=== PATIENT | male | born 1975 | race Caucasian/White ===

== ENCOUNTER 2017-02-21 21:11 | Emergency (ER) | payer MEDICAID ==
[2017-02-21 21:11] VITALS: BMI 20.7
[2017-02-21 21:52] VITALS: BP 131/85; PULSE 59; RESP 20; TEMP 97.7; O2SAT 97
[2017-02-21] MEDS ORDERED: Fluorescein 1 mg Ophthalmic Strip OS ONE (21:57)
[2017-02-21] MEDS ORDERED: Tetracaine 0.5% Ophth 2 ML BOTTLE OU ONE (21:57)
--- NOTE | 2017-02-21 22:01 | C.PDOC ---
History Of Present Illness 41 y.o male complains of left eye pain for 1 month. Patient states he had piece of wood in eye and was seen in ER in December. He used eye drops and was unable to follow up with optho. He continues to have pain to eye, not daily but often. He denies any visual changes, itching, dryness, discharge, new injury. Time Seen by Provider: 02/21/17 21:49 Chief Complaint (Nursing): Eye Problem History Per: Patient History/Exam Limitations: no limitations Onset/Duration Of Symptoms: Other (1 month) Current Symptoms Are (Timing): Still Present Injury To Eye?: No Quality: "Pain" Associated Symptoms: Pain. denies: Decreased Vision, Swelling, FB Sensation, Itching, Discharge From Eye Past Medical History Reviewed: Historical Data, Nursing Documentation, Vital Signs Vital Signs: Last Vital Signs Temp 97.7 F 02/21/17 21:49 Pulse 59 L 02/21/17 21:49 Resp 20 02/21/17 21:49 BP 131/85 02/21/17 21:49 Pulse Ox 97 02/21/17 22:18 - Medical History PMH: No Chronic Diseases Family History: States: Unknown Family Hx - Social History Hx Tobacco Use: No Hx Alcohol Use: No Hx Substance Use: No - Immunization History Hx Tetanus Toxoid Vaccination: No Hx Influenza Vaccination: No Hx Pneumococcal Vaccination: No Review Of Systems Constitutional: Negative for: Fever, Weakness Eyes: Positive for: Pain. Negative for: Vision Change, Conjunctivae Inflammation, Redness ENT: Negative for: Ear Pain, Nose Pain, Throat Pain Cardiovascular: Negative for: Chest Pain Respiratory: Negative for: Cough Skin: Negative for: Rash Neurological: Negative for: Headache, Dizziness Physical Exam - Physical Exam Appears: Non-toxic, No Acute Distress Skin: Warm, Dry, No Diaphoretic, No Pale, No Rash Head: Atraumatic, Normacephalic Eye(s): bilateral: Normal Inspection, PERRL, EOMI, Other (no discharge, no fluoroscein uptake) Nose: Normal Neck: Normal ROM, Supple Extremity: Normal ROM, No Deformity, No Swelling Neurological/Psych: Oriented x3, Normal Speech ED Course And Treatment O2 Sat by Pulse Oximetry: 97 Medical Decision Making Medical Decision Making: Prior records show patient was seen in ED 12/22/16 for eye foreign body and corneal abrasion, Rx for polytrim given. Exam was unremarkable, no fluoroscein uptake on exam. Will prescribe antibiotic drops and to follow up with optho Disposition Counseled Patient/Family Regarding: Need For Followup, Rx Given - Disposition Referrals: Olayinka Wang MD [Staff Provider] - Disposition: HOME/ ROUTINE Disposition Time: 22:14 Condition: STABLE Additional Instructions: Follow up with referral physician in 1-2 days without fail for further evaluation. Take medications as prescribed. Return to the emergency department at any time if symptoms persist or worsen. Prescriptions: Ofloxacin Ophth 0.3% [Ocuflox Ophth 0.3%] 5 ml OS QID #1 bottle Instructions: Eye Pain (ED) - POA Present On Arrival: None - Clinical Impression Clinical Impression: Pain in eye
[2017-02-21] MEDS ORDERED: Tetracaine 0.5% Ophth (OR ONLY) ONE (22:08)
[2017-02-21] MEDS ORDERED: Fluorescein 1 mg Ophthalmic Strip ONE (22:08)
== END 2017-02-21 22:41 | disposition home or self-care (01) ==
LOC: C.ER 21:11
DX: H57.12 Ocular pain, left eye (principal)

== ENCOUNTER 2017-03-04 03:14 | Emergency (ER) | payer MEDICAID ==
[2017-03-04 03:14] VITALS: BMI 20.7
[2017-03-04 03:28] VITALS: RESP 16; O2SAT 99
--- NOTE | 2017-03-04 03:34 | C.PDOC ---
History Of Present Illness Patient is a 41 year old male who presents to the ER with a complaint of lower back pain. Patient denies recent injury, dysuria or hematuria. Chief Complaint (Nursing): Back Pain History Per: Patient History/Exam Limitations: no limitations Onset/Duration Of Symptoms: Hrs Current Symptoms Are (Timing): Still Present Previous Symptoms: None Associated Symptoms: None Recent travel outside of the [place]: No Past Medical History Reviewed: Historical Data, Nursing Documentation, Vital Signs Vital Signs: Last Vital Signs Temp 97.6 F 03/04/17 03:27 Pulse 73 03/04/17 03:27 Resp 16 03/04/17 03:27 BP 138/89 03/04/17 03:27 Pulse Ox 99 03/04/17 03:39 - Medical History PMH: No Chronic Diseases Surgical History: No Surg Hx Family History: States: Unknown Family Hx - Social History Hx Tobacco Use: No Hx Alcohol Use: No Hx Substance Use: No - Immunization History Hx Tetanus Toxoid Vaccination: No Hx Influenza Vaccination: No Hx Pneumococcal Vaccination: No Review Of Systems Genitourinary: Negative for: Dysuria, Hematuria Musculoskeletal: Positive for: Back Pain (Lower) Physical Exam - Physical Exam Appears: Well, Non-toxic Skin: Normal Color, Warm, Dry Head: Atraumatic, Normacephalic Eye(s): bilateral: Normal Inspection, EOMI Oral Mucosa: Moist Chest: Symmetrical, No Tenderness Cardiovascular: Rhythm Regular, No Murmur Respiratory: Normal Breath Sounds, No Rales, No Rhonchi, No Wheezing Gastrointestinal/Abdominal: Soft, No Tenderness Back: No Vertebral Tenderness, Paraspinal Tenderness (Mild sacral), Straight Leg Raising (Pain provoked by raising of lower extremities) Neurological/Psych: Oriented x3, Normal Speech, Normal Cognition ED Course And Treatment O2 Sat by Pulse Oximetry: 99 (room air) Pulse Ox Interpretation: Normal Progress Note: LS spine x-ray and urinalysis ordered. Flexeril and toradol administered. Disposition Counseled Patient/Family Regarding: Diagnosis - Disposition Referrals: [facility] [Outside] Disposition: HOME/ ROUTINE Disposition Time: 04:42 Condition: STABLE Prescriptions: Cyclobenzaprine [Cyclobenzaprine HCl] 10 mg PO TID #20 tab Naproxen [Naprosyn Tab] 375 mg PO TIDPC #20 tab Instructions: Back Exercises (ED), Back Pain (ED) - POA Present On Arrival: None - Clinical Impression Clinical Impression: Low back pain, Low back strain - Scribe Statement The provider has reviewed the documentation as recorded by the Scribkim Kaur All medical record entries made by the Netoibe were at my direction and personally dictated by me. I have reviewed the chart and agree that the record accurately reflects my personal performance of the history, physical exam, medical decision making, and the department course for this patient. I have also personally directed, reviewed, and agree with the discharge instructions and disposition.
[2017-03-04 04:15] LABS: URINE BILIRUBIN NEGATIVE (NEGATIVE); URINE BLOOD NEGATIVE (NEGATIVE); URINE COLOR COLORLESS (YELLOW); URINE GLUCOSE (UA) NEGATIVE (Normal); URINE KETONE NEGATIVE (NEGATIVE); URINE PROTEIN NEGATIVE (NEGATIVE)
[2017-03-04 04:16] LABS: URINE LEUKOCYTE ESTERASE NEGATIVE Leu/uL (Negative); URINE UROBILINOGEN Normal mg/dL (0.2-1.0)
[2017-03-04 04:55] VITALS: BP 124/85; PULSE 58; TEMP 97.8
--- NOTE | 2017-03-04 10:21 | RAD ---
PROCEDURE: Radiographs of the Lumbar Spine. HISTORY: lower back pain No antecedent history of trauma provided. COMPARISON: No prior. FINDINGS: BONES: Normal alignment. No listhesis. No fracture. DISC SPACES: Unremarkable. OTHER FINDINGS: Constipation without fecal impaction or obstruction. IMPRESSION: No significant or acute findings to account for/ related to the clinical presentation.
== END 2017-03-04 05:00 | disposition home or self-care (01) ==
LOC: C.ER 03:14
DX: S39.012A Strain of muscle, fascia and tendon of lower back, initial encounter (principal); X58.XXXA Exposure to other specified factors, initial encounter
CPT/HCPCS: 72100; 81001; 96372; 99283; J1885

== ENCOUNTER 2017-04-30 23:09 | Emergency (ER) | payer MEDICAID ==
[2017-04-30 23:10] VITALS: BMI 20.7
[2017-05-01 00:13] VITALS: BP 120/85; PULSE 66; RESP 16; TEMP 98.4; O2SAT 97
--- NOTE | 2017-05-01 00:59 | C.PDOC ---
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 Denies weakness, numbness, incontinence, dysuria, hematuria, or recent trauma. Time Seen by Provider: 05/01/17 00:22 Chief Complaint (Nursing): Back Pain History Per: Patient History/Exam Limitations: no limitations Onset/Duration Of Symptoms: Hrs Current Symptoms Are (Timing): Still Present Quality Of Discomfort: Unable To Describe Severity: Moderate Previous Symptoms: None Associated Symptoms: None. denies: Incontinence, New Weakness, New Numbness Exacerbating Factor(s): Nothing, Movement Recent travel outside of the [place]: No Past Medical History Reviewed: Historical Data, Nursing Documentation, Vital Signs Vital Signs: Last Vital Signs Temp 98.4 F 05/01/17 00:06 Pulse 66 05/01/17 00:06 Resp 16 05/01/17 00:06 BP 120/85 05/01/17 00:06 Pulse Ox 97 05/01/17 02:50 - Medical History PMH: No Chronic Diseases Surgical History: No Surg Hx Family History: States: Unknown Family Hx - Social History Hx Tobacco Use: No Hx Alcohol Use: No Hx Substance Use: No - Immunization History Hx Tetanus Toxoid Vaccination: No Hx Influenza Vaccination: No Hx Pneumococcal Vaccination: No Review Of Systems Genitourinary: Negative for: Dysuria, Incontinence, Hematuria Musculoskeletal: Positive for: Neck Pain, Back Pain Neurological: Negative for: Weakness, Numbness Physical Exam - Physical Exam Appears: Non-toxic Skin: Normal Color, Warm, Dry Head: Atraumatic, Normacephalic Eye(s): bilateral: Normal Inspection, PERRL Oral Mucosa: Moist Neck: Normal, No Midline Cervical Tenderness, No Paracervical Tenderness, Supple Back: Normal Inspection, No CVA Tenderness, No Vertebral Tenderness, No Decreased ROM, No Paraspinal Tenderness, No Straight Leg Raising Extremity: Normal ROM (x4), No Tenderness Neurological/Psych: Oriented x3, Normal Speech, Normal Cognition, Normal Motor, Normal Sensation Gait: Steady ED Course And Treatment O2 Sat by Pulse Oximetry: 97 (Room air) Pulse Ox Interpretation: Normal Progress Note: Flexeril and motrin administered. Patient is resting comfortably , is no longer having back pain, no fever, no bony tenderness, no numbness, no weakness, or abdominal pain. Patient is ambulatory in the emergency department with no signs of discomfort. Patient was advised to follow up with their physician in 1-2 days. Disposition Counseled Patient/Family Regarding: Diagnosis, Need For Followup, Rx Given - Disposition Disposition: HOME/ ROUTINE Disposition Time: 00:58 Condition: STABLE Additional Instructions: Please take medictions as directed Follow up with PMD Return to ER if worse Prescriptions: Cyclobenzaprine [Cyclobenzaprine HCl] 10 mg PO HS #7 tab Ibuprofen [Motrin] 600 mg PO Q6H #30 tab Instructions: Cervical Strain (DC), Acute Low Back Pain (ED) Forms: Work Excuse Print Language: ALGERIAN - Clinical Impression Clinical Impression: Lumbar sprain, Cervical sprain - Scribe Statement The provider has reviewed the documentation as recorded by the Scribkim Kaur All medical record entries made by the Netoibkim were at my direction and personally dictated by me. I have reviewed the chart and agree that the record accurately reflects my personal performance of the history, physical exam, medical decision making, and the department course for this patient. I have also personally directed, reviewed, and agree with the discharge instructions and disposition.
== END 2017-05-01 01:23 | disposition home or self-care (01) ==
LOC: C.ER 23:09
DX: S33.5XXA Sprain of ligaments of lumbar spine, initial encounter (principal); S13.4XXA Sprain of ligaments of cervical spine, initial encounter; X50.0XXA Overexertion from strenuous movement or load, initial encounter; Y92.89 Other specified places as the place of occurrence of the external cause; Y99.0 Civilian activity done for income or pay

== ENCOUNTER 2017-05-28 19:40 | Emergency (ER) | payer MEDICAID ==
[2017-05-28 19:40] VITALS: BMI 20.7
[2017-05-28 20:02] VITALS: BP 174/64; TEMP 98.4
[2017-05-28] MEDS ORDERED: Erythromycin 0.5% Ophth Oint 1 APPLIC/3.5 G OD STA (20:10)
--- NOTE | 2017-05-28 20:10 | C.PDOC ---
History Of Present Illness 42 year old male presents to the ED with complaints of dysuria and increased frequency intermittently for one year that has been worsening over the last few days. Was seen here twice for similar complaints, with a negative work up. Patient denies any sexual intercourse, hematuria, flank pain, or swelling. He also complaints of right eye pain for several months with swelling of the right eyelid today. Patient denies injury or visual changes. Time Seen by Provider: 05/28/17 20:05 Chief Complaint (Nursing): Male Genitourinary History Per: Patient History/Exam Limitations: no limitations Onset/Duration Of Symptoms: Intermittent Episodes, Worse Since (last few days of urinary symptoms; eye swelling today ) Current Symptoms Are (Timing): Still Present Recent travel outside of the [place]: No Past Medical History Reviewed: Historical Data, Nursing Documentation, Vital Signs Vital Signs: Last Vital Signs Temp 98.4 F 05/28/17 19:54 Pulse 75 05/28/17 20:47 Resp 18 05/28/17 20:47 BP 174/64 H 05/28/17 19:54 Pulse Ox 99 05/28/17 20:47 - Medical History PMH: Family History: States: Unknown Family Hx - Social History Hx Tobacco Use: No Hx Alcohol Use: No Hx Substance Use: No - Immunization History Hx Tetanus Toxoid Vaccination: No Hx Influenza Vaccination: No Hx Pneumococcal Vaccination: No Review Of Systems Constitutional: Negative for: Fever, Chills Eyes: Positive for: Pain (right eye pain and swelling) Gastrointestinal: Negative for: Nausea, Vomiting, Abdominal Pain, Diarrhea Genitourinary: Positive for: Dysuria. Negative for: Hematuria, Penile Discharge Musculoskeletal: Negative for: Back Pain Physical Exam - Physical Exam Appears: Non-toxic, No Acute Distress Skin: Warm, Dry Head: Atraumatic, Normacephalic Eye(s): bilateral: PERRL, EOMI, right: Eyelid Inflammation (mild upper eyelid inflammation), Other (no redness or discharge. ), left: Normal Inspection Ear(s): Bilateral: Normal Nose: Normal, No Discharge Oral Mucosa: Moist Neck: Supple Chest: Symmetrical, No Deformity Cardiovascular: Rhythm Regular Respiratory: Normal Breath Sounds, No Rhonchi, No Wheezing Gastrointestinal/Abdominal: Soft, No Tenderness, No Distention, No Guarding, No Rebound Male Genital: Normal Inspection, No Testicular Tenderness, No Testicular Swelling, No Inguinal Tenderness, No Inguinal Swelling, No Scrotal Swelling Neurological/Psych: Oriented x3, Normal Speech Gait: Steady ED Course And Treatment O2 Sat by Pulse Oximetry: 98 (room air ) Progress Note: Patient was given erythromycin ointment for eye. UA ordered and unremarkable. Cultures sent out. Patient advised to follow up with clinic or urology for further eval Disposition Counseled Patient/Family Regarding: Diagnosis, Need For Followup - Disposition Referrals: [facility] [Outside] Dalila Cutler MD [Staff Provider] - Disposition: HOME/ ROUTINE Disposition Time: 20:40 Condition: STABLE Additional Instructions: Follow up with the clinic in 2-5 days for further evaluation. Apply ointment to eye. Apply cream to genital area. Return to the emergency department at any time if symptoms persist or worsen. You may call critical access hospital service for any assistance [phone]. 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 - Scribe Statement The provider has reviewed the documentation as recorded by the Scribe Matilde Arriaga All medical record entries made by the Scribe were at my direction and personally dictated by me. I have reviewed the chart and agree that the record accurately reflects my personal performance of the history, physical exam, medical decision making, and the department course for this patient. I have also personally directed, reviewed, and agree with the discharge instructions and disposition.
[2017-05-28 20:33] LABS: RBC URINE < 1 /hpf (0-3); URINE BILIRUBIN NEGATIVE (NEGATIVE); URINE BLOOD NEGATIVE (NEGATIVE); URINE COLOR Colorless (YELLOW); URINE GLUCOSE (UA) NORMAL (Normal); URINE KETONE NEGATIVE (NEGATIVE); URINE LEUKOCYTE ESTERASE NEG Leu/uL (Negative); URINE PROTEIN NEGATIVE (NEGATIVE); URINE UROBILINOGEN NORMAL mg/dL (0.2-1.0)
[2017-05-28] MEDS ORDERED: Erythromycin 0.5% Ophth Oint 1 APPLIC/3.5 G ONE (20:39)
[2017-05-28 20:47] VITALS: PULSE 75; RESP 18
[2017-05-29 13:09] VITALS: O2SAT 98
== END 2017-05-28 20:48 | disposition home or self-care (01) ==
LOC: C.ER 19:40
DX: R30.0 Dysuria (principal); L73.9 Follicular disorder, unspecified; H01.001 Unspecified blepharitis right upper eyelid

== ENCOUNTER 2017-06-11 11:47 | Emergency (ER) | payer MEDICAID ==
[2017-06-11 11:47] VITALS: BMI 20.7
[2017-06-11 11:50] VITALS: TEMP 97.6
[2017-06-11] MEDS ORDERED: Lidocaine 2% Jelly (Uro-Jet) ONE (12:14)
[2017-06-11] MEDS ORDERED: Lidocaine 2% Jelly (Uro-Jet) TOP ONE (12:14)
--- NOTE | 2017-06-11 12:14 | C.PDOC ---
History Of Present Illness 42 y/o male presents to ED for evaluation of persistent scrotal pain and dysuria for the past year. Pt was seen here on 05/28 for similar symptoms and was discharged home with Bactroban cream which pt states he has used without any improvement. Pt notes that pain is "deep inside" his scrotum, and states he has pain at the base of his penis on urination. Pt has been seen here multiple times in the past for similar complaints, with negative UA and urine culture. Pt states he was supposed to follow up with Dr. Paco Cutler but has not followed up. Otherwise, denies any irritation, rash, penile discharge, pelvic pain, or fever. Denies taking any OTC pain meds. Chief Complaint (Nursing): Male Genitourinary History Per: Patient History/Exam Limitations: no limitations Onset/Duration Of Symptoms: Days Current Symptoms Are (Timing): Still Present Quality Of Discomfort: "Pain" Associated Symptoms: Urinary Symptoms Alleviating Factors: None Recent travel outside of the [place]: No Additional History Per: Patient Past Medical History Reviewed: Historical Data, Nursing Documentation, Vital Signs Vital Signs: Last Vital Signs Temp 97.6 F 06/11/17 11:50 Pulse 59 L 06/11/17 11:50 Resp 20 06/11/17 11:50 BP 133/87 06/11/17 11:50 Pulse Ox 97 06/11/17 12:33 - Medical History PMH: Denies: Chronic Kidney Disease Family History: States: Unknown Family Hx - Social History Hx Tobacco Use: No Hx Alcohol Use: No Hx Substance Use: No - Immunization History Hx Tetanus Toxoid Vaccination: No Hx Influenza Vaccination: No Hx Pneumococcal Vaccination: No Review Of Systems Except As Marked, All Systems Reviewed And Found Negative. Constitutional: Negative for: Fever, Chills Gastrointestinal: Negative for: Nausea, Vomiting, Abdominal Pain Genitourinary: Positive for: Dysuria, Frequency, Scrotal Pain, Penile Pain. Negative for: Hematuria, Penile Discharge, Rash Musculoskeletal: Negative for: Back Pain Physical Exam - Physical Exam Appears: Non-toxic, No Acute Distress Skin: Normal Color, Warm, Dry Gastrointestinal/Abdominal: Soft, No Tenderness Male Genital: Normal Inspection, No Testicular Tenderness, No Testicular Swelling, No Inguinal Tenderness, No Inguinal Swelling, No Scrotal Swelling Neurological/Psych: Oriented x3, Normal Speech, Normal Cognition ED Course And Treatment O2 Sat by Pulse Oximetry: 97 (on RA) Pulse Ox Interpretation: Normal Progress - Re-Evaluation Re-evaluation Note: 06/11/17 12:19 UROJET APPLIED. PT TOLERATED WELL, FEELS BETTER - Data Reviewed Data Reviewed: Old records Disposition Counseled Patient/Family Regarding: Diagnosis, Need For Followup - Disposition Referrals: Paco Cutler MD [Staff Provider] - Disposition: HOME/ ROUTINE Disposition Time: 12:13 Condition: IMPROVED Prescriptions: Naproxen 500 mg PO BID #30 tab Phenazopyridine HCl [Pyridium] 200 mg PO BID #6 tablet Instructions: Dysuria (ED) Forms: [employer] (Danish) - Clinical Impression Clinical Impression: Dysuria, Chronic pain - Scribe Statement The provider has reviewed the documentation as recorded by the Scribkim Noyola All medical record entries made by the Netoibe were at my direction and personally dictated by me. I have reviewed the chart and agree that the record accurately reflects my personal performance of the history, physical exam, medical decision making, and the department course for this patient. I have also personally directed, reviewed, and agree with the discharge instructions and disposition.
[2017-06-11 12:38] VITALS: BP 134/72; PULSE 62; RESP 18; O2SAT 98
== END 2017-06-11 12:39 | disposition home or self-care (01) ==
LOC: C.ER 11:47
DX: R30.0 Dysuria (principal); G89.29 Other chronic pain

== ENCOUNTER 2017-07-30 07:16 | Emergency (ER) | payer MEDICAID ==
[2017-07-30 07:17] VITALS: BMI 20.7
[2017-07-30 07:24] VITALS: BP 145/95; PULSE 65; RESP 18; TEMP 97.7; O2SAT 98
--- NOTE | 2017-07-30 08:04 | C.PDOC ---
History Of Present Illness 42 y/o male presents to ED with complaints of back pain and shoulder pain for 2 days. Patient also complaints of feeling "cold" and admits he does a lot of heavy lifting at work. Patient has not taken any medication for pain and denies bowel/bladder incontinence, fever, chills, nausea, vomiting, diarrhea or any other complaints at this time. Time Seen by Provider: 07/30/17 07:25 Chief Complaint (Nursing): Back Pain History Per: Patient History/Exam Limitations: no limitations Onset/Duration Of Symptoms: Days Current Symptoms Are (Timing): Still Present Quality Of Discomfort: "Pain" Severity: Mild Recent travel outside of the [place]: No Past Medical History Reviewed: Historical Data, Nursing Documentation, Vital Signs Vital Signs: Last Vital Signs Temp 97.7 F 07/30/17 07:21 Pulse 65 07/30/17 07:21 Resp 18 07/30/17 08:33 BP 145/95 H 07/30/17 07:21 Pulse Ox 98 07/30/17 08:33 - Medical History PMH: No Chronic Diseases Surgical History: No Surg Hx Family History: States: No Known Family Hx - Social History Hx Tobacco Use: No Hx Alcohol Use: No Hx Substance Use: No - Immunization History Hx Tetanus Toxoid Vaccination: No Hx Influenza Vaccination: No Hx Pneumococcal Vaccination: No Review Of Systems Constitutional: Negative for: Fever, Chills Gastrointestinal: Negative for: Nausea, Vomiting, Diarrhea Musculoskeletal: Positive for: Shoulder Pain, Back Pain Skin: Negative for: Rash Neurological: Negative for: Weakness, Numbness Physical Exam - Physical Exam Appears: Non-toxic, No Acute Distress Skin: Normal Color, Warm, Dry, No Rash Head: Atraumatic, Normacephalic Eye(s): bilateral: Normal Inspection Oral Mucosa: Moist Neck: Normal ROM, Supple Chest: Symmetrical, Tenderness (right parathoracic area) Respiratory: Normal Breath Sounds Gastrointestinal/Abdominal: Soft, No Tenderness, No Guarding, No Rebound Back: No CVA Tenderness, No Paraspinal Tenderness, Other (Right upper back tenderness) Extremity: Normal ROM, Capillary Refill (<2 seconds) Neurological/Psych: Oriented x3, Normal Motor, Normal Sensation ED Course And Treatment O2 Sat by Pulse Oximetry: 98 (RA) Pulse Ox Interpretation: Normal - Radiology CXR: Interpreted by Me CXR Interpretation: Yes: No Acute Disease Progress Note: Treated with motrin 600 mg PO. On re-evaluation lungs clear. ambulating in ED without difficulty Reassessment Condition: Improved Medical Decision Making Medical Decision Making: Plan: XRAY, Motrin Disposition Counseled Patient/Family Regarding: Studies Performed, Diagnosis, Need For Followup, Rx Given - Disposition Referrals: [facility] [Outside] [facility] [Outside] Disposition: HOME/ ROUTINE Disposition Time: 08:40 Condition: IMPROVED Additional Instructions: Follow up with your PMD or clinic for further evaluation Prescriptions: Naproxen [Naprosyn] 1 tab PO BID PRN #25 tab PRN Reason: Pain Instructions: Back Pain (ED) Forms: [employer] (South African) - POA Present On Arrival: None - Clinical Impression Clinical Impression: Thoracic back pain, Musculoskeletal back pain - 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 - Scribe Statement The provider has reviewed the documentation as recorded by the Ginger Mckeon All medical record entries made by the Ginger were at my direction and personally dictated by me. I have reviewed the chart and agree that the record accurately reflects my personal performance of the history, physical exam, medical decision making, and the department course for this patient. I have also personally directed, reviewed, and agree with the discharge instructions and disposition.
--- NOTE | 2017-07-30 09:53 | RAD ---
HISTORY: Cough r/o CHF COMPARISON: 11/09/2012 TECHNIQUE: Chest PA and lateral FINDINGS: LUNGS: No active pulmonary disease. PLEURA: No significant pleural effusion identified. No pneumothorax apparent. CARDIOVASCULAR: Normal. OSSEOUS STRUCTURES: No significant abnormalities. VISUALIZED UPPER ABDOMEN: Normal. OTHER FINDINGS: None. IMPRESSION: No active disease.
== END 2017-07-30 08:51 | disposition home or self-care (01) ==
LOC: C.ER 07:16
DX: M54.6 Pain in thoracic spine (principal)

== ENCOUNTER 2017-09-06 09:56 | Emergency (ER) | payer SELFPAY ==
[2017-09-06 09:58] VITALS: BMI 20.7
--- NOTE | 2017-09-06 10:20 | C.PDOC ---
History Of Present Illness 42 yr old male presents to the ER with complaints of persistent foreign body sensation to the throat since last night. Patient states he accidentally swallowed a chicken bone/cartilage fragment but was able to swallow liquids this morning. Patient complains of pain to the upper/mid front of throat. Denies mouth pain, chest pain, SOB, vomiting or neck pain. PERSIST THROAT FB SENSATION SINCE LAST NIGHT. PS ACCID SWALLOWED CHICKEN BONE/ CARTILAGE FRAGMENT. ABLE TO SWALLOW LIQUID THIS MORNING. CO PAIN UPPER/MID FRONT OF THROAT. NO OTHER ASSOC SX EXAM NAD NONTOXIC HEENT NO DROOL, VOICE CHANGE NECK SUPPLE NO STRIDOR REMAINDER NEG Time Seen by Provider: 09/06/17 10:07 Chief Complaint (Nursing): Foreign Body History Per: Patient History/Exam Limitations: None Onset/Duration Of Symptoms: Days (Last night) Current Symptoms Are (Timing): Still Present Past Medical History Reviewed: Historical Data, Nursing Documentation, Vital Signs Vital Signs: Last Vital Signs Temp 98.0 F 09/06/17 12:31 Pulse 66 09/06/17 12:31 Resp 18 09/06/17 12:31 BP 128/82 09/06/17 12:31 Pulse Ox 100 09/06/17 12:45 - Medical History PMH: Family History: States: No Known Family Hx - Social History Hx Tobacco Use: No Hx Alcohol Use: No Hx Substance Use: No - Immunization History Hx Tetanus Toxoid Vaccination: No Hx Influenza Vaccination: No Hx Pneumococcal Vaccination: No Review Of Systems Except As Marked, All Systems Reviewed And Found Negative. ENT: Positive for: Other ((+) Foreign body sensation in the throat). Negative for: Mouth Pain Cardiovascular: Negative for: Chest Pain Respiratory: Negative for: Shortness of Breath Gastrointestinal: Negative for: Vomiting Musculoskeletal: Negative for: Neck Pain Physical Exam - Physical Exam Appears: Non-toxic, No Acute Distress Skin: Warm, Dry, No Rash Head: Atraumatic, Normacephalic Oral Mucosa: Moist, No Drooling, No Trismus Throat: Normal, No Erythema, No Exudate, No Drooling, Other (No voice change) Neck: Normal, Normal ROM, Supple Respiratory: Normal Breath Sounds, No Rales, No Rhonchi, No Stridor, No Wheezing Extremity: Normal ROM, No Swelling Neurological/Psych: Oriented x3, Normal Speech, Normal Motor, Normal Sensation Gait: Steady ED Course And Treatment O2 Sat by Pulse Oximetry: 100 (RA) Pulse Ox Interpretation: Normal - Other Rad CT - Soft Tissue Neck X-Ray: Interpreted by Me, Viewed By Me Interpretation: NO FB. Reevaluation Time: 12:44 Reassessment Condition: Improved (CT NEG) Medical Decision Making Medical Decision Making: PLAN: * CT - Neck Soft Tissue Disposition Counseled Patient/Family Regarding: Studies Performed, Diagnosis, Need For Followup - Disposition Referrals: YOUR,PMD [Other] Disposition: HOME/ ROUTINE Disposition Time: 12:44 Condition: IMPROVED Additional Instructions: THERE IS NO FOREIGN BODY IN YOUR THROAT. FOLLOW UP WITH YOUR PMD Forms: [facility] (Cameroonian), General Discharge Instructions - Clinical Impression Clinical Impression: Sensation of foreign body - Scribe Statement The provider has reviewed the documentation as recorded by the Ginger Baptiste Provider Attestation: All medical record entries made by the Netoibe were at my direction and personally dictated by me. I have reviewed the chart and agree that the record accurately reflects my personal performance of the history, physical exam, medical decision making, and the department course for this patient. I have also personally directed, reviewed, and agree with the discharge instructions and disposition.
[2017-09-06 10:45] VITALS: O2SAT 100
[2017-09-06 12:32] VITALS: BP 128/82; PULSE 66; RESP 18; TEMP 98
[2017-09-06] MEDS ORDERED: Aluminum Hydroxide/Magnesium Hydroxide Susp (30 mL) PO STA (12:43)
[2017-09-06] MEDS ORDERED: Aluminum Hydroxide/Magnesium Hydroxide Susp (30 mL) ONE (12:55)
--- NOTE | 2017-09-06 13:05 | CT ---
PROCEDURE: CT scan neck dated 09/06/2017 HISTORY: Foreign body sensation COMPARISON: Comparison made with plain film radiographs of the neck and CT scan neck dated [facility] 08/20/2015 and 07/31/2012 respectively. TECHNIQUE: CT scan neck without intravenous contrast. Coronal and sagittal reformats generated. Radiation dose: DLP 555.43 mGy-cm This CT exam was performed using one or more of the following dose reduction techniques: Automated exposure control, adjustment of the mA and/or kV according to patient size, and/or use of iterative reconstruction technique. FINDINGS: The current study reveals no large cervical masses or collections. Multiple small nonspecific bilateral cervical lymph nodes are present none of which appear pathologically enlarged. Thyroid gland appears unremarkable. The submandibular and parotid glands are also unremarkable without masses collections or calcifications. Cervical vasculature poorly delineated due to the lack of circulating intravenous contrast material. . Airway is widely patent throughout. The visualized portions of the oral cavity so far as can be seen appear unremarkable ; note that the superior margin of the oral cavity partially obscured by streak and beam hardening artifact. The palatine tonsils appear grossly unremarkable. Minimal asymmetry of the vallecula may be secondary to some encroachment of lingual tonsil however some residual and or retained secretion may be present. Free margin of the epiglottis unremarkable. Aryepiglottic folds and pyriform sinuses are relatively symmetric as are the true vocal cords. Minor left apical pleural thickening Lung apices are otherwise clear. No evidence of radiopaque foreign bodies are identified on this study. There is sclerosis of the cervical segments nonspecific ; has there been prior radiotherapy at this patient? . . Mild multilevel degenerative spondylosis of the cervical spine IMPRESSION: No radiopaque foreign bodies are identified. Sclerotic changes of the cervical spine; rule out sequela of radiotherapy.
--- NOTE | 2017-09-06 13:34 | RAD ---
PROCEDURE: Radiographs of the neck (soft tissue). HISTORY: FB SENSATION COMPARISON: Comparison made with concurrent CT scan neck. TECHNIQUE: Frontal and Lateral Radiographs of the neck, optimized for soft tissue visualization. FINDINGS: SOFT TISSUES: No radiopaque foreign bodies are identified. Airway is midline and patent. CERVICAL SPINE: No acute compression fractures no retropulsed fragments. There is straightening of the normal cervical lordosis. Mild multilevel degenerative spondylosis. The cervical vertebral bodies appear sclerotic nonspecific; rule out sequela of radiotherapy OTHER FINDINGS: Lung apices appear clear. . IMPRESSION: No radiopaque foreign bodies. Straightening of the normal cervical lordosis. Mild multilevel degenerative spondylosis. Sclerotic changes of the cervical segments nonspecific; rule out sequela of radiotherapy.
== END 2017-09-06 13:02 | disposition home or self-care (01) ==
LOC: C.ER 09:56
DX: R09.89 Other specified symptoms and signs involving the circulatory and respiratory systems (principal)

== ENCOUNTER 2017-12-05 19:50 | Emergency (ER) | payer MEDICAID ==
[2017-12-05 19:50] VITALS: BMI 20.7
[2017-12-05 20:12] VITALS: BP 124/84; PULSE 65; RESP 20; TEMP 98.1; O2SAT 96
[2017-12-05] MEDS ORDERED: Tetracaine 0.5% Ophth (OR ONLY) OU STA (20:27)
[2017-12-05] MEDS ORDERED: Fluorescein 1 mg Ophthalmic Strip ONE (20:38)
[2017-12-05] MEDS ORDERED: Tetracaine 0.5% Ophth (OR ONLY) ONE (20:38)
[2017-12-05] MEDS ORDERED: Fluorescein 1 mg Ophthalmic Strip OD STA (20:43)
[2017-12-05] MEDS ORDERED: Tobramycin 0.3% OPHT SOLN OD STA (20:44)
--- NOTE | 2017-12-05 20:46 | C.PDOC ---
History Of Present Illness 42yo male, presents to ER for evaluation of a foreign body sensation in his right eye. Patient states earlier today, he was breaking a plastic object, did not have protective eye covering and feels a piece of plastic may have entered his eye. He denies any pain, discharge from his eye or changes in vision. No other complaints. Time Seen by Provider: 12/05/17 20:25 Chief Complaint (Nursing): Eye Problem History Per: Patient History/Exam Limitations: no limitations Onset/Duration Of Symptoms: Hrs Current Symptoms Are (Timing): Still Present Injury To Eye?: No Wears Contact Lens?: No Associated Symptoms: FB Sensation. denies: Pain, Decreased Vision, Discharge From Eye Past Medical History Reviewed: Historical Data, Nursing Documentation, Vital Signs Vital Signs: Last Vital Signs Temp 98.1 F 12/05/17 20:08 Pulse 65 12/05/17 20:08 Resp 20 12/05/17 20:08 BP 124/84 12/05/17 20:08 Pulse Ox 96 12/05/17 21:00 - Medical History PMH: No Chronic Diseases Denies: Chronic Kidney Disease Surgical History: No Surg Hx Family History: States: No Known Family Hx - Social History Hx Tobacco Use: No Hx Alcohol Use: No Hx Substance Use: No - Immunization History Hx Tetanus Toxoid Vaccination: No Hx Influenza Vaccination: No Hx Pneumococcal Vaccination: No Review Of Systems Except As Marked, All Systems Reviewed And Found Negative. Eyes: Positive for: Other (foreign body sensation right eye). Negative for: Pain, Vision Change Physical Exam - Physical Exam Appears: Non-toxic Skin: Normal Color, Warm Head: Normacephalic Eye(s): bilateral: PERRL, EOMI, right: Other (flurosceine uptake negative, no corneal abrasion noted. no foreign body noted upon eyelid inversion) Neurological/Psych: Oriented x3, Normal Speech, Normal Cognition ED Course And Treatment O2 Sat by Pulse Oximetry: 96 (RA) Pulse Ox Interpretation: Normal Progress Note: Fluroscein exam negative. Patient to be given antibiotics eye drops and instruction to follow up with opthalmologist tomorrow. Patient stable for discharge home. Disposition - Disposition Referrals: Ajith Ascencio [Staff Provider] - Disposition: HOME/ ROUTINE Disposition Time: 20:45 Condition: STABLE Additional Instructions: Follow up with PMD and Quality Process Auditor tomorrow 1-2 days. Return to ED if feel worse. Instructions: Foreign Body in Eye Forms: [employer] [facility] (Malay) - Clinical Impression Clinical Impression: Pain in eye - PA / LOG WASHER / Resident 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 - Scribe Statement The provider has reviewed the documentation as recorded by the Scribe (Albania Wilson) Provider Attestation: All medical record entries made by the Scribe were at my direction and personally dictated by me. I have reviewed the chart and agree that the record accurately reflects my personal performance of the history, physical exam, medical decision making, and the department course for this patient. I have also personally directed, reviewed, and agree with the discharge instructions and disposition.
--- NOTE | 2017-12-05 20:47 | C.PDOC ---
Time Seen by Provider: 12/05/17 20:25 Chief Complaint (Nursing): Eye Problem Past Medical History Vital Signs: Last Vital Signs Temp 98.1 F 12/05/17 20:08 Pulse 65 12/05/17 20:08 Resp 20 12/05/17 20:08 BP 124/84 12/05/17 20:08 Pulse Ox 96 12/05/17 20:48 - Medical History PMH: Denies: Chronic Kidney Disease - Social History Hx Tobacco Use: No Hx Alcohol Use: No Hx Substance Use: No - Immunization History Hx Tetanus Toxoid Vaccination: No Hx Influenza Vaccination: No Hx Pneumococcal Vaccination: No ED Course And Treatment O2 Sat by Pulse Oximetry: 96 Disposition - Disposition Referrals: Ajith Ascencio [Staff Provider] - Disposition: HOME/ ROUTINE Additional Instructions: Follow up with PMD and Rn Plastic Surgery tomorrow 1-2 days. Return to ED if feel worse. Instructions: Foreign Body in Eye Forms: [facility] (Turkish) - Clinical Impression Clinical Impression: Pain in eye
== END 2017-12-05 21:10 | disposition home or self-care (01) ==
LOC: C.ER 19:50
DX: H57.11 Ocular pain, right eye (principal)

== ENCOUNTER 2017-12-10 10:58 | Emergency (ER) | payer MEDICAID ==
[2017-12-10 10:58] VITALS: BMI 20.7
[2017-12-10 11:09] VITALS: BP 127/76; PULSE 80; RESP 16; O2SAT 98
--- NOTE | 2017-12-10 13:15 | C.PDOC ---
History Of Present Illness 42-year-old male, presents to the emergency department with complaints of generalized body aches, cough, runny nose and fever since yesterday. Denies recent travel, rashes, nausea/vomiting/diarrhea, back pain, rashes, dizziness, symptoms. No other complaint. HPI: Influenza Time Seen by Provider: 12/10/17 11:24 Chief Complaint: Flu-like Symptoms History Per: Patient Exam Limitations: no limitations Past Medical History Reviewed: Historical Data, Nursing Documentation, Vital Signs Vital Signs: Last Vital Signs Temp 100.3 F H 12/10/17 11:54 Pulse 80 12/10/17 11:07 Resp 16 12/10/17 11:07 BP 127/76 12/10/17 11:07 Pulse Ox 98 12/10/17 11:07 - Medical History PMH: Family History: States: No Known Family Hx - Social History Hx Tobacco Use: No Hx Alcohol Use: No Hx Substance Use: No - Immunization History Hx Tetanus Toxoid Vaccination: No Hx Influenza Vaccination: Yes Hx Pneumococcal Vaccination: No Review Of Systems Except As Marked, All Systems Reviewed And Found Negative. Constitutional: Positive for: Fever, Malaise ENT: Positive for: Nose Discharge (runny nose). Negative for: Ear Pain, Ear Discharge, Nose Congestion, Throat Pain Cardiovascular: Negative for: Chest Pain, Palpitations Respiratory: Positive for: Cough. Negative for: Sputum Gastrointestinal: Negative for: Nausea, Vomiting Musculoskeletal: Negative for: Neck Pain, Back Pain Skin: Negative for: Rash Neurological: Negative for: Weakness, Numbness, Headache, Dizziness Physical Exam - Physical Exam Appears: Non-toxic, No Acute Distress (Ill-appearing.) Skin: Normal Color, Warm, Dry, Rash Head: Normacephalic Eye(s): bilateral: PERRL Nose: Normal Oral Mucosa: Moist Lips: Normal Appearing Throat: No Erythema, No Exudate Neck: Normal ROM, Trachea Midline, Supple, Other ((-)meningeal signs) Chest: Symmetrical Cardiovascular: Rhythm Regular, No Murmur Respiratory: Normal Breath Sounds, No Accessory Muscle Use, No Rales, No Rhonchi , No Stridor, No Wheezing Extremity: Normal ROM, No Deformity, No Swelling Neurological/Psych: Oriented x3, Normal Speech Medical Decision Making Medical Decision Making: Impression 42y/o M comes in with flu-like symptoms. Plan: * Patient will be treated with Motrin, Tamiflu and Tylenol Re-evaluation: Patient is resting comfortably, tolerating PO, and is afebrile at this time. Clinical signs and symptoms are not suggestive of sepsis, meningitis, UTI, pneumonia, intra-abdominal pathology, or cellulitis. Patient will be discharge home, and instructed to follow up with his/her physician in 1-2 days without fail. Patient was instructed to return for any worsening symptoms, persistent fever, neck pain, rash, abdominal pain, or vomiting. - ECG O2 Sat by Pulse Oximetry: 98 Disposition Counseled Patient/Family Regarding: Diagnosis, Need For Followup, Rx Given - Disposition Referrals: [facility] [Outside] Disposition: HOME/ ROUTINE Disposition Time: 13:13 Condition: STABLE Prescriptions: Ibuprofen [Motrin] 600 mg PO TID #15 tab Oseltamivir [Tamiflu] 1 cap PO BID #10 cap Instructions: Flu, Adult (DC) Forms: General Discharge Instructions, [facility] (Hungarian), Work Excuse - POA Present On Arrival: None - Clinical Impression Clinical Impression: Influenza-like illness - Scribe Statement The provider has reviewed the documentation as recorded by the Scribe (Rebeca Cramer) All medical record entries made by the Scribe were at my direction and personally dictated by me. I have reviewed the chart and agree that the record accurately reflects my personal performance of the history, physical exam, medical decision making, and the department course for this patient. I have also personally directed, reviewed, and agree with the discharge instructions and disposition.
[2017-12-10 13:46] VITALS: TEMP 97.9
== END 2017-12-10 13:45 | disposition home or self-care (01) ==
LOC: C.ER 10:58
DX: J11.1 Influenza due to unidentified influenza virus with other respiratory manifestations (principal)

== ENCOUNTER 2018-01-03 20:01 | Emergency (ER) | payer MEDICAID ==
[2018-01-03 20:01] VITALS: BMI 20.7
[2018-01-03 20:14] VITALS: BP 150/84; PULSE 62; TEMP 97.7; O2SAT 98
--- NOTE | 2018-01-03 21:08 | C.PDOC ---
History Of Present Illness 42yo male, presents to ED with multiple complaints including dental pain, neck pain and bilateral upper back pain. Patient states he has dental pain because he hit it against a heavy object. He denies any trauma or injury to his neck and back area, denies any heavy object falling on him as well. He denies any weakness, numbness, tingling. No other medical complaints. Time Seen by Provider: 01/03/18 20:18 Chief Complaint (Nursing): Dental Pain History Per: Patient History/Exam Limitations: no limitations Onset/Duration Of Symptoms: Days Current Symptoms Are (Timing): Still Present Past Medical History Reviewed: Historical Data, Nursing Documentation, Vital Signs Vital Signs: Last Vital Signs Temp 97.7 F 01/03/18 20:12 Pulse 62 01/03/18 20:12 Resp 20 01/03/18 22:07 BP 150/84 01/03/18 20:12 Pulse Ox 98 01/03/18 21:21 - Medical History PMH: No Chronic Diseases Denies: Chronic Kidney Disease Surgical History: No Surg Hx Family History: States: No Known Family Hx - Social History Hx Tobacco Use: No Hx Alcohol Use: No Hx Substance Use: No - Immunization History Hx Tetanus Toxoid Vaccination: No Hx Influenza Vaccination: Yes Hx Pneumococcal Vaccination: No Review Of Systems Except As Marked, All Systems Reviewed And Found Negative. ENT: Positive for: Other (dental pain) Musculoskeletal: Positive for: Neck Pain, Shoulder Pain, Back Pain Physical Exam - Physical Exam Appears: Non-toxic, No Acute Distress Skin: Normal Color, Warm, Dry Head: Atraumatic, Normacephalic Eye(s): bilateral: Normal Inspection Nose: Normal Oral Mucosa: Moist Teeth: Normal Dentition, No Tender To Palpation, No Loose, No Avulsed Gingiva: Normal Appearing, No Erythema, No Swelling, No Bleeding Neck: Normal ROM, No Midline Cervical Tenderness, Supple Chest: Symmetrical Cardiovascular: Rhythm Regular Respiratory: Normal Breath Sounds Back: Paraspinal Tenderness (mild bilateral parathoracic tenderness) Extremity: Normal ROM Neurological/Psych: Oriented x3, Normal Speech, Normal Cognition ED Course And Treatment O2 Sat by Pulse Oximetry: 98 (RA) Pulse Ox Interpretation: Normal Disposition - Disposition Referrals: [facility] [Outside] Disposition: HOME/ ROUTINE Disposition Time: 21:16 Condition: FAIR Additional Instructions: Follow up with the medical doctor/clinic within 1-2 days. Return if worsened. Prescriptions: Cyclobenzaprine [Cyclobenzaprine HCl] 10 mg PO BID #14 tab Ibuprofen [Motrin] 1 tab PO TID PRN #30 tab PRN Reason: Pain Instructions: Dental Pain (DC) Forms: [employer] [facility] (Emirati) - Clinical Impression Clinical Impression: Musculoskeletal back pain, Dental trauma - PA / FOURCHETTE SEWER / Resident 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 - Scribe Statement The provider has reviewed the documentation as recorded by the Scribe ([place] Wilson) All medical record entries made by the Scribe were at my direction and personally dictated by me. I have reviewed the chart and agree that the record accurately reflects my personal performance of the history, physical exam, medical decision making, and the department course for this patient. I have also personally directed, reviewed, and agree with the discharge instructions and disposition.
[2018-01-03 22:07] VITALS: RESP 20
== END 2018-01-03 22:07 | disposition home or self-care (01) ==
LOC: C.ER 20:01
DX: S09.93XA Unspecified injury of face, initial encounter (principal); W22.8XXA Striking against or struck by other objects, initial encounter; M54.6 Pain in thoracic spine

== ENCOUNTER 2018-01-10 20:19 | Emergency (ER) | payer MEDICAID ==
[2018-01-10 20:19] VITALS: BMI 20.7
[2018-01-10 20:24] VITALS: BP 138/84; PULSE 67; RESP 18; TEMP 97.3; O2SAT 100
[2018-01-10] MEDS ORDERED: Fluorescein 1 mg Ophthalmic Strip ONE (20:53)
[2018-01-10] MEDS ORDERED: Tobramycin 0.3% OPH OINT OU STA (21:04)
[2018-01-10] MEDS ORDERED: Tobramycin 0.3% OPH OINT ONE (21:07)
--- NOTE | 2018-01-10 21:18 | C.PDOC ---
History Of Present Illness 42 year old male presents to the emergency room with complaints of a foreign body sensation in both of his eyes, but worse in the left eye. Patient reports that he feels as if a small plastic particle went into his eyes. Otherwise, he has no complaints, and denies photophobia, or headache. Time Seen by Provider: 01/10/18 20:35 Chief Complaint (Nursing): Eye Problem History Per: Patient, EMS History/Exam Limitations: no limitations Onset/Duration Of Symptoms: Hrs Injury To Eye?: Yes Quality: "Pain" Associated Symptoms: Pain. denies: Other (photophobia) Past Medical History Reviewed: Historical Data, Nursing Documentation, Vital Signs Vital Signs: Last Vital Signs Temp 97.3 F L 01/10/18 20:22 Pulse 67 01/10/18 20:22 Resp 18 01/10/18 20:22 BP 138/84 01/10/18 20:22 Pulse Ox 100 01/10/18 21:49 - Medical History PMH: No Chronic Diseases Denies: Chronic Kidney Disease Surgical History: No Surg Hx Family History: States: No Known Family Hx - Social History Hx Tobacco Use: No Hx Alcohol Use: No Hx Substance Use: No - Immunization History Hx Tetanus Toxoid Vaccination: No Hx Influenza Vaccination: Yes Hx Pneumococcal Vaccination: No Review Of Systems Eyes: Positive for: Pain. Negative for: Other (photophobia) Neurological: Negative for: Headache Physical Exam - Physical Exam Appears: Well, Non-toxic Skin: Normal Color Head: Atraumatic, Normacephalic Eye(s): bilateral: PERRL, EOMI, Other (no foreign body visualized, no conjunctival hemorrhage or erythema, visual acuity 20/50 in the left eye and 20/ 30 in the right. Large corneal abrasion noted at the seven o'clock area OS. small punctate abrasion OD) Throat: Normal Neck: Normal ROM Neurological/Psych: Oriented x3, Normal Speech, Normal Cognition Gait: Steady ED Course And Treatment O2 Sat by Pulse Oximetry: 100 (RA) Pulse Ox Interpretation: Normal Progress Note: Motrin 600mg PO ordered, and Trobex oph oint was applied. Patient referred to ophthalmology. Retrn precautions d/w pt who reports understanding Disposition Counseled Patient/Family Regarding: Diagnosis, Need For Followup, Rx Given - Disposition Referrals: Olayinka Wang MD [Staff Provider] - Disposition: HOME/ ROUTINE Disposition Time: 21:16 Condition: STABLE Additional Instructions: USE EYE OINTMENT TWICE DAILY (GIVEN TO YOU IN ED) TYLENOL AND MOTRIN FOR PAIN FOLLOW UP WITH EYE DOCTOR RETURN TO ER IF WORSE Instructions: Corneal Abrasion (DC) Forms: [employer] [facility] (Portuguese) - Clinical Impression Clinical Impression: Corneal abrasion - PA / FABRICATION SPECIALIST / Resident 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 - Scribe Statement The provider has reviewed the documentation as recorded by the Scribe (Heath Collado) All medical record entries made by the Scribe were at my direction and personally dictated by me. I have reviewed the chart and agree that the record accurately reflects my personal performance of the history, physical exam, medical decision making, and the department course for this patient. I have also personally directed, reviewed, and agree with the discharge instructions and disposition.
== END 2018-01-10 21:33 | disposition home or self-care (01) ==
LOC: C.ER 20:19
DX: S05.02XA Injury of conjunctiva and corneal abrasion without foreign body, left eye, initial encounter (principal); S05.01XA Injury of conjunctiva and corneal abrasion without foreign body, right eye, initial encounter; X58.XXXA Exposure to other specified factors, initial encounter; Y92.9 Unspecified place or not applicable

== ENCOUNTER 2018-01-22 23:08 | Emergency (ER) | payer MEDICAID ==
[2018-01-22 23:08] VITALS: BMI 20.7
[2018-01-22 23:24] VITALS: TEMP 97.9
--- NOTE | 2018-01-23 00:03 | C.PDOC ---
History Of Present Illness 42 year old male presents to the ER with a complaint of a foreign body sensation to his right lower eyelid. Patient has been seen in the ER several times already for the same complaint, he believes he has a small piece of plastic in his eye. 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 Patient also complains of nasal congestion and atraumatic right heel pain. Denies fever, weakness, numbness, or change in vision. Time Seen by Provider: 01/22/18 23:29 Chief Complaint (Nursing): ENT Problem History Per: Patient History/Exam Limitations: no limitations Onset/Duration Of Symptoms: Days Current Symptoms Are (Timing): Still Present Recent travel outside of the [place]: No Past Medical History Reviewed: Historical Data, Nursing Documentation, Vital Signs Vital Signs: Last Vital Signs Temp 97.9 F 01/23/18 00:10 Pulse 80 01/23/18 00:10 Resp 13 01/23/18 00:10 BP 110/70 01/23/18 00:10 Pulse Ox 100 01/23/18 03:13 - Medical History PMH: Family History: States: Unknown Family Hx - Social History Hx Tobacco Use: No Hx Alcohol Use: No Hx Substance Use: No - Immunization History Hx Tetanus Toxoid Vaccination: No Hx Influenza Vaccination: No Hx Pneumococcal Vaccination: No Review Of Systems Constitutional: Negative for: Fever, Chills Eyes: Positive for: Other (Foreign body sensation). Negative for: Vision Change ENT: Positive for: Nose Congestion Musculoskeletal: Positive for: Other (Right heel pain) Physical Exam - Physical Exam Appears: Non-toxic, No Acute Distress Skin: Normal Color, Warm, Dry Head: Atraumatic, Normacephalic Eye(s): bilateral: Normal Inspection (No foreign body or corneal abrasion), PERRL, EOMI Nose: Normal Oral Mucosa: Moist Extremity: Normal ROM (x4), No Tenderness, Capillary Refill (<2 seconds), No Deformity Pulses: Left Dorsalis Pedis: Normal, Right Dorsalis Pedis: Normal Neurological/Psych: Oriented x3, Normal Speech, Normal Motor, Normal Sensation Gait: Steady ED Course And Treatment O2 Sat by Pulse Oximetry: 100 (Room air) Pulse Ox Interpretation: Normal Progress Note: Patient is resting comfortably in the ER in no acute distress, vitals are stable, will discharge home with instructions to follow up with PMD. Disposition Counseled Patient/Family Regarding: Diagnosis, Need For Followup, Rx Given - Disposition Referrals: Sarahi Ayala MD [Staff Provider] - Disposition: HOME/ ROUTINE Disposition Time: 00:00 Condition: STABLE Prescriptions: Ibuprofen [Motrin] 600 mg PO Q6H #20 tab Mometasone Furoate [Nasonex] 2 spray NS DAILY #1 bottle Instructions: Seasonal Allergies (DC), Heel Pain (Caused by Plantar Fasciitis) (DC) Forms: [email or web address] (Cymro), Work Excuse - Clinical Impression Clinical Impression: Pain of right heel, Sensation of foreign body in eye, Seasonal allergies - PA / [employer] / Resident 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 - Scribe Statement The provider has reviewed the documentation as recorded by the Scribkim Kaur All medical record entries made by the Netoibkim were at my direction and personally dictated by me. I have reviewed the chart and agree that the record accurately reflects my personal performance of the history, physical exam, medical decision making, and the department course for this patient. I have also personally directed, reviewed, and agree with the discharge instructions and disposition.
[2018-01-23 00:11] VITALS: BP 110/70; PULSE 80; RESP 13
[2018-01-23 03:05] VITALS: O2SAT 100
== END 2018-01-23 00:11 | disposition home or self-care (01) ==
LOC: C.ER 23:08
DX: H57.8 Other specified disorders of eye and adnexa (principal); J30.2 Other seasonal allergic rhinitis; M79.671 Pain in right foot

== ENCOUNTER 2018-02-25 01:03 | Emergency (ER) | payer MEDICAID ==
[2018-02-25 01:03] VITALS: BMI 20.7
--- NOTE | 2018-02-25 03:34 | C.PDOC ---
History Of Present Illness 42 year old male presents to the ED c/o right calf pain for the past month. 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 Patient denies trauma, injury , fall, prolonged immobilization, recent prolonged travel, PMHx of DVT/PE or other coagulible states. Time Seen by Provider: 02/25/18 01:53 Chief Complaint (Nursing): Lower Extremity Problem/Injury History Per: Patient History/Exam Limitations: no limitations Onset/Duration Of Symptoms: Days Current Symptoms Are (Timing): Still Present Recent travel outside of the [place]: No Additional History Per: Patient Past Medical History Reviewed: Historical Data, Nursing Documentation, Vital Signs Vital Signs: Last Vital Signs Temp 97.5 F L 02/25/18 05:21 Pulse 59 L 02/25/18 05:21 Resp 18 02/25/18 05:21 BP 112/76 02/25/18 05:21 Pulse Ox 98 02/25/18 05:33 - Medical History PMH: No Chronic Diseases Denies: Chronic Kidney Disease Surgical History: No Surg Hx Family History: States: Unknown Family Hx - Social History Hx Tobacco Use: No Hx Alcohol Use: No Hx Substance Use: No - Immunization History Hx Tetanus Toxoid Vaccination: No Hx Influenza Vaccination: No Hx Pneumococcal Vaccination: No Review Of Systems Constitutional: Negative for: Fever, Chills Cardiovascular: Negative for: Chest Pain Respiratory: Negative for: Shortness of Breath Musculoskeletal: Positive for: Leg Pain (Rt) Physical Exam - Physical Exam Appears: Non-toxic, No Acute Distress Skin: Normal Color, Warm, Dry Head: Atraumatic, Normacephalic Eye(s): bilateral: Normal Inspection Nose: No Discharge Oral Mucosa: Moist Neck: Normal ROM, Supple Chest: Symmetrical Cardiovascular: Rhythm Regular Respiratory: Normal Breath Sounds, No Rales, No Wheezing Extremity: Normal ROM, Tenderness (lateral aspect right calf. no induration, rash), No Calf Tenderness, Capillary Refill (< 2 seconds), No Swelling Extremity: Bilateral: Normal Color And Temperature Pulses: Left Dorsalis Pedis: Normal, Right Dorsalis Pedis: Normal Neurological/Psych: Oriented x3, Normal Speech, Normal Motor, Normal Sensation Gait: Steady ED Course And Treatment O2 Sat by Pulse Oximetry: 98 (ON RA) Pulse Ox Interpretation: Normal Progress Note: Plan: - D Dimer. - Motrin 600 mg PO. 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 - Scribe Statement The provider has reviewed the documentation as recorded by the Scribe Michele Gimenez All medical record entries made by the Netoibkim were at my direction and personally dictated by me. I have reviewed the chart and agree that the record accurately reflects my personal performance of the history, physical exam, medical decision making, and the department course for this patient. I have also personally directed, reviewed, and agree with the discharge instructions and disposition.
[2018-02-25 05:22] VITALS: BP 112/76; PULSE 59; RESP 18; TEMP 97.5
[2018-02-25 05:31] VITALS: O2SAT 98
== END 2018-02-25 05:23 | disposition home or self-care (01) ==
LOC: C.ER 01:03
DX: S86.911A Strain of unspecified muscle(s) and tendon(s) at lower leg level, right leg, initial encounter (principal); X50.0XXA Overexertion from strenuous movement or load, initial encounter; Y92.89 Other specified places as the place of occurrence of the external cause; Y99.8 Other external cause status; M79.604 Pain in right leg

== ENCOUNTER 2018-03-16 21:25 | Emergency (ER) | payer OTHER, MEDICAID ==
[2018-03-16 21:26] VITALS: BMI 20.7
[2018-03-16 21:44] VITALS: BP 126/84; PULSE 91; RESP 16; TEMP 97.9; O2SAT 98
[2018-03-16] MEDS ORDERED: Naproxen 550 mg Tab PO STA (22:36)
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
[2018-03-16] MEDS ORDERED: Naproxen 550 mg Tab PO ONE (22:40)
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
== END 2018-03-16 23:06 | disposition home or self-care (01) ==
LOC: C.ER 21:25
DX: S00.83XA Contusion of other part of head, initial encounter (principal); Y04.0XXA Assault by unarmed brawl or fight, initial encounter

== ENCOUNTER 2018-04-05 10:09 | Emergency (ER) | payer MEDICAID, OTHER ==
[2018-04-05 10:09] VITALS: BMI 20.7
[2018-04-05 10:14] VITALS: BP 131/87; PULSE 62; RESP 16; TEMP 97.8; O2SAT 98
--- NOTE | 2018-04-05 11:58 | C.PDOC ---
History Of Present Illness 42-year-old male, presents to the emergency department with co possible L hand FOREIGN BODY X 1 WEEK. CO PAIN, SKIN LUMP TO AREA. NO DC, REDNESS OTHER ASSOC SX ALSO CO PERSIST B/L EYE DISCOMFORT X 6 MO. PS SAW OPTHO 4 MO AGO FOR SAME BUT NO IMPROVE. NO VISION CHANGE, REDNESS, DC EXAM NAD NONTEND HEENT B/L EYES CLEAR, NO CONJUNCTIVITIS EOMI NO SWELL DC NO GROSS VISION DEF EXT L HAND +0.5 SUBCUT NODULE/SCAR ABOVE 2ND METATARS HEAD PALMAR SURFACE. NO ERYTHEMA. +PALP SUBCUT FB. NO TENDON DYSFXN. NEURO NO FOCAL DEF SKIN NO ERYTHEMA. +PALP SUBCUT FB Time Seen by Provider: 04/05/18 11:25 Chief Complaint (Nursing): Finger,Hand,&Wrist History Per: Patient History/Exam Limitations: no limitations Past Medical History Reviewed: Historical Data, Nursing Documentation, Vital Signs Vital Signs: Last Vital Signs Temp 97.8 F 04/05/18 10:12 Pulse 62 04/05/18 10:12 Resp 16 04/05/18 10:12 BP 131/87 04/05/18 10:12 Pulse Ox 98 04/05/18 12:57 - Medical History PMH: Family History: States: No Known Family Hx - Social History Hx Tobacco Use: No Hx Alcohol Use: No Hx Substance Use: No - Immunization History Hx Tetanus Toxoid Vaccination: No Hx Influenza Vaccination: No Hx Pneumococcal Vaccination: No Review Of Systems Constitutional: Negative for: Fever, Chills Eyes: Positive for: Pain Cardiovascular: Negative for: Chest Pain Respiratory: Negative for: Shortness of Breath, Hemoptysis Gastrointestinal: Negative for: Vomiting Musculoskeletal: Positive for: Hand Pain (L) Skin: Negative for: Rash Neurological: Negative for: Weakness, Numbness, Headache, Dizziness Physical Exam - Physical Exam Appears: Non-toxic, No Acute Distress Skin: Normal Color, Warm, Dry, No Rash, Other (NO ERYTHEMA. +PALP SUBCUT FB) Head: Atraumatic, Normacephalic Eye(s): bilateral: Normal Inspection (B/L EYES CLEAR, NO CONJUNCTIVITIS EOMI NO SWELL DC NO GROSS VISION DEF), PERRL, EOMI Nose: Normal Oral Mucosa: Moist Lips: Normal Appearing Neck: Normal ROM Chest: Symmetrical Cardiovascular: Rhythm Regular, No Murmur Respiratory: Normal Breath Sounds, No Accessory Muscle Use Extremity: No Deformity, Other ( L HAND +0.5 SUBCUT NODULE/SCAR ABOVE 2ND METATARS HEAD PALMAR SURFACE. NO ERYTHEMA. +PALP SUBCUT FB. NO TENDON DYSFXN. ) Neurological/Psych: Oriented x3, Normal Speech (NO FOCAL DEF) ED Course And Treatment O2 Sat by Pulse Oximetry: 98 (RA) Pulse Ox Interpretation: Normal Disposition Counseled Patient/Family Regarding: Studies Performed, Diagnosis, Need For Followup, Rx Given - Disposition Referrals: YOUR,PMD [Other] Disposition: HOME/ ROUTINE Disposition Time: 12:53 Condition: IMPROVED Prescriptions: Cephalexin [cephalexin] 500 mg PO BID #14 cap Mineral Oil/White Petrolatum [Lacri-Lube] 1 applic OU PRN PRN #1 tube PRN Reason: Dry Eyes Instructions: Foreign Body in Skin (DC) Forms: [employer] (Danish) - Clinical Impression Clinical Impression: Foreign body hand, Eye discomfort - Scribe Statement The provider has reviewed the documentation as recorded by the Scribe (Rebeca Chris) All medical record entries made by the Scribe were at my direction and personally dictated by me. I have reviewed the chart and agree that the record accurately reflects my personal performance of the history, physical exam, medical decision making, and the department course for this patient. I have also personally directed, reviewed, and agree with the discharge instructions and disposition. PROCEDURES - Foreign Body Removal Consent Obtained: verbal consent Time Out Performed: Yes Site: left, hand Description of foreign body: other (METAL/GLASS) Sedation/Analgesia: none Technique: removal with forceps, incision made to facilitate removal Confirmed by:: direct visualization, radiograph, patient report, palpation Complications:: Bleeding Post-procedure exam: Awake, alert Neurovascular: Normal distal pulse, Normal capillary, Distal light touch sensation intact, Distal motor function normal, No signs of compartment syndrome , No change from pre-procedure
[2018-04-05] MEDS ORDERED: Lidocaine 1% Inj (20ml) INFIL STA (12:10)
[2018-04-05] MEDS ORDERED: Lidocaine Hydrochloride 5 ML INJ ONE (12:16)
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
== END 2018-04-05 13:03 | disposition home or self-care (01) ==
LOC: C.ER 10:09
DX: S60.552A Superficial foreign body of left hand, initial encounter (principal); X58.XXXA Exposure to other specified factors, initial encounter; Y92.9 Unspecified place or not applicable

== ENCOUNTER 2018-05-24 00:06 | Emergency (ER) | payer MEDICAID ==
[2018-05-24 00:07] VITALS: BMI 20.7
[2018-05-24 00:20] VITALS: O2SAT 98
[2018-05-24] MEDS ORDERED: PROPARACAINE/FLUORESCEIN SOD 100 DROP/5 ML BOTTLE OS STA (00:21)
[2018-05-24] MEDS ORDERED: Erythromycin 0.5% Ophth Oint 1 APPLIC/3.5 G OS STA (01:00)
--- NOTE | 2018-05-24 01:13 | C.PDOC ---
History Of Present Illness 43 year old male presents to the ED c/o left eye pain. Patient states he poked himself in the left eye with a piece of grass. Patient denies visual changes, fever, chills, nausea, vomit, rash. Time Seen by Provider: 05/24/18 00:21 Chief Complaint (Nursing): Eye Problem History Per: Patient History/Exam Limitations: no limitations Onset/Duration Of Symptoms: Hrs Current Symptoms Are (Timing): Still Present Injury To Eye?: Yes Quality: "Pain" Wears Contact Lens?: No Associated Symptoms: Pain Recent travel outside of the [place]: No Additional History Per: Patient Past Medical History Reviewed: Historical Data, Nursing Documentation, Vital Signs Vital Signs: Last Vital Signs Temp 97.4 F L 05/24/18 01:33 Pulse 60 05/24/18 01:33 Resp 16 05/24/18 01:33 BP 117/72 05/24/18 01:33 Pulse Ox 98 05/24/18 01:41 - Medical History PMH: No Chronic Diseases Denies: Chronic Kidney Disease Surgical History: No Surg Hx Family History: States: Unknown Family Hx - Social History Hx Tobacco Use: No Hx Alcohol Use: No Hx Substance Use: No - Immunization History Hx Tetanus Toxoid Vaccination: No Hx Influenza Vaccination: No Hx Pneumococcal Vaccination: No Review Of Systems Constitutional: Negative for: Fever, Chills Eyes: Positive for: Pain ENT: Negative for: Nose Discharge, Nose Congestion, Throat Pain Respiratory: Negative for: Cough, Shortness of Breath Gastrointestinal: Negative for: Nausea, Vomiting Skin: Negative for: Rash Neurological: Negative for: Headache, Dizziness Physical Exam - Physical Exam Appears: Non-toxic, No Acute Distress Skin: Normal Color, Warm, Dry Head: Atraumatic, Normacephalic Eye(s): bilateral: Normal Inspection, PERRL, EOMI, left: Other (no FB observed. Fluorescein/tetracaine drops applied uptake between 2 and 3 o'clock) Ear(s): Bilateral: Normal Oral Mucosa: Moist Neck: Normal ROM, Supple Neurological/Psych: Oriented x3, Normal Speech Gait: Steady ED Course And Treatment O2 Sat by Pulse Oximetry: 98 (ON RA) Pulse Ox Interpretation: Normal Medical Decision Making Medical Decision Making: pt with small corneal abrasion to left eye at 2-3 o'clock position. will give ibuprofen and erythromycin ointment. d/c home with ophtho f/u Disposition Counseled Patient/Family Regarding: Studies Performed, Diagnosis, Need For Followup, Rx Given - Disposition Referrals: Ajith Ascencio [Staff Provider] - Disposition: HOME/ ROUTINE Disposition Time: 01:41 Condition: GOOD Additional Instructions: Please take ibuprofen for pain as directed. Please put one half inch ribbon of ointment into left eye every 6 hours. Follow up with eye doctor on Friday without fail. Return to ER for any worse symptoms. 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 - Scribe Statement The provider has reviewed the documentation as recorded by the Scribe Michele Gimenez All medical record entries made by the Scribe were at my direction and personally dictated by me. I have reviewed the chart and agree that the record accurately reflects my personal performance of the history, physical exam, medical decision making, and the department course for this patient. I have also personally directed, reviewed, and agree with the discharge instructions and disposition.
[2018-05-24] MEDS ORDERED: Erythromycin 0.5% Ophth Oint 1 APPLIC/3.5 G ONE (01:28)
[2018-05-24 01:34] VITALS: BP 117/72; PULSE 60; RESP 16; TEMP 97.4
== END 2018-05-24 01:45 | disposition home or self-care (01) ==
LOC: C.ER 00:06
DX: S05.02XA Injury of conjunctiva and corneal abrasion without foreign body, left eye, initial encounter (principal); W22.8XXA Striking against or struck by other objects, initial encounter

== ENCOUNTER 2018-06-30 23:52 | Emergency (ER) | payer MEDICAID ==
[2018-06-30 23:52] VITALS: BMI 20.7
[2018-07-01 00:02] VITALS: PULSE 71
--- NOTE | 2018-07-01 00:54 | C.PDOC ---
History Of Present Illness 43 y/o male presents to the ED complaining of pain to the right lower eyelid for 2 days. No trauma. Patient denies any eye redness, discharge, headache, dizziness, visual loss, or superficial swelling. Time Seen by Provider: 07/01/18 00:19 Chief Complaint (Nursing): Eye Problem History Per: Patient History/Exam Limitations: no limitations Onset/Duration Of Symptoms: Days Current Symptoms Are (Timing): Still Present Injury To Eye?: No Associated Symptoms: Pain Past Medical History Reviewed: Historical Data, Nursing Documentation, Vital Signs Vital Signs: Last Vital Signs Temp 97.9 F 07/01/18 01:10 Pulse 71 07/01/18 01:10 Resp 20 07/01/18 01:10 BP 123/79 07/01/18 01:10 Pulse Ox 99 07/01/18 03:41 - Medical History PMH: Denies: Chronic Kidney Disease Surgical History: No Surg Hx Family History: States: Unknown Family Hx - Social History Hx Tobacco Use: No Hx Alcohol Use: No Hx Substance Use: No - Immunization History Hx Tetanus Toxoid Vaccination: No Hx Influenza Vaccination: No Hx Pneumococcal Vaccination: No Review Of Systems Constitutional: Negative for: Fever Eyes: Positive for: Pain (to right inner eyelid). Negative for: Vision Change, Conjunctivae Inflammation, Redness, Other (discharge or superficial swelling) Neurological: Negative for: Headache, Dizziness Physical Exam - Physical Exam Appears: Non-toxic, No Acute Distress Skin: Warm, Dry Head: Atraumatic, Normacephalic Eye(s): bilateral: PERRL, EOMI, right: Other (minimal small stye to the internal aspect of right lower eyelid at the nasal cantus; No conjunctival erythema; Visual acuity 20/20; No facial swelling or discharge) Oral Mucosa: Moist Chest: Symmetrical Extremity: Bilateral: Atraumatic Neurological/Psych: Oriented x3, Normal Speech, Normal Cranial Nerves Gait: Steady ED Course And Treatment O2 Sat by Pulse Oximetry: 99 (RA) Pulse Ox Interpretation: Normal Progress Note: Patient informed of exam findings. In the ED patient remains afebrile, resting comfortably, in no acute distress. Counseled regarding diagnosis and follow up instructions. Provided with prescription for erythromycin ointment. Disposition Counseled Patient/Family Regarding: Diagnosis, Need For Followup, Rx Given - Disposition Referrals: Sarahi Ayala MD [Primary Care Provider] - Disposition: HOME/ ROUTINE Disposition Time: 00:52 Condition: STABLE Additional Instructions: Apply warm compress to area Apply crream as directed Return to ER if worse Prescriptions: Erythromycin 0.5% [Erythromycin 0.5% Oint] 1 appl OD BID #1 tube Instructions: Stye (Hordeolum) Forms: [employer] (Eritrean) - POA Present On Arrival: None - Clinical Impression Clinical Impression: Hordeolum internum right lower eyelid - PA / PODIATRY ASSISTANT / Resident 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 - Scribe Statement The provider has reviewed the documentation as recorded by the Scribe (Tawanna Veliz) All medical record entries made by the Scribe were at my direction and personally dictated by me. I have reviewed the chart and agree that the record accurately reflects my personal performance of the history, physical exam, medical decision making, and the department course for this patient. I have also personally directed, reviewed, and agree with the discharge instructions and disposition.
[2018-07-01 01:11] VITALS: BP 123/79; RESP 20; TEMP 97.9
[2018-07-01 03:39] VITALS: O2SAT 99
== END 2018-07-01 01:11 | disposition home or self-care (01) ==
LOC: C.ER 23:52 → SUPCPDRO 23:52 → C.ER 07-01 01:11
DX: H00.022 Hordeolum internum right lower eyelid (principal)

== ENCOUNTER 2018-07-17 14:55 | Emergency (ER) | payer MEDICAID ==
[2018-07-17 14:56] VITALS: BMI 20.7
[2018-07-17 15:11] VITALS: BP 134/85; PULSE 75; RESP 20; TEMP 98.1; O2SAT 100
--- NOTE | 2018-07-17 15:24 | C.PDOC ---
History Of Present Illness 43 year old male presents to the ED with left wrist pain for 3 days after pulling cart at work. He describes the pain as aching and throbbing, exacerbated with movement. The patient denies any numbness, weakness and limited motion. Time Seen by Provider: 07/17/18 15:15 Chief Complaint (Nursing): Upper Extremity Problem/Injury History Per: Patient History/Exam Limitations: no limitations Onset/Duration Of Symptoms: Days Current Symptoms Are (Timing): Still Present Quality: Aching, Other (Throbbing) Exacerbating Factor(s): Movement Past Medical History Reviewed: Historical Data, Nursing Documentation, Vital Signs Vital Signs: Last Vital Signs Temp 98.1 F 07/17/18 15:07 Pulse 75 07/17/18 15:07 Resp 20 07/17/18 15:07 BP 134/85 07/17/18 15:07 Pulse Ox 100 07/17/18 15:07 - Medical History PMH: Denies: Chronic Kidney Disease Family History: States: Unknown Family Hx - Social History Hx Tobacco Use: No Hx Alcohol Use: No Hx Substance Use: No - Immunization History Hx Tetanus Toxoid Vaccination: (UNK) Hx Influenza Vaccination: Yes Hx Pneumococcal Vaccination: (UNK) Review Of Systems Except As Marked, All Systems Reviewed And Found Negative. Musculoskeletal: Positive for: Arm Pain (wrist pain ) Neurological: Negative for: Weakness, Numbness Physical Exam - Physical Exam Appears: Well, No Acute Distress Skin: Normal Color Head: Atraumatic, Normacephalic Eye(s): bilateral: Normal Inspection Neck: Normal, Supple Extremity: Tenderness (tenderness distal radial aspect of forearm and wrist, pain with supination) Pulses: Left Radial: Normal, Right Radial: Normal Neurological/Psych: Oriented x3, Normal Speech ED Course And Treatment O2 Sat by Pulse Oximetry: 100 (RA) Pulse Ox Interpretation: Normal Medical Decision Making Medical Decision Making: Impression: 43 year old male with wrist pain, likely tendonitis or strain; no trauma Plan: * Wrist xray * Motrin Progress: Xray viewed by me shows no acute fracture or cortical abnormality Patient given volar velcro splint and recommend to rest, ice and take NSAID. Patient feels comfortable going home and will be discharged. Disposition Counseled Patient/Family Regarding: Diagnosis, Need For Followup, Rx Given - Disposition Referrals: Mackenzie Fong MD [Staff Provider] - Disposition: HOME/ ROUTINE Disposition Time: 15:48 Condition: GOOD Additional Instructions: Your xray was normal, no fracture. Please apply ice to area 15 minutes three times a day. Take Motrin as needed for pain every 6 hours, with food to not upset stomach. Follow up with orthopedic if pain persists over one week. 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 - Scribe Statement The provider has reviewed the documentation as recorded by the Scribe (Ivania Vasquez) All medical record entries made by the Scribe were at my direction and personally dictated by me. I have reviewed the chart and agree that the record accurately reflects my personal performance of the history, physical exam, medical decision making, and the department course for this patient. I have also personally directed, reviewed, and agree with the discharge instructions and disposition.
--- NOTE | 2018-07-17 16:25 | RAD ---
Date of service: 07/17/2018 PROCEDURE: Left Wrist Radiographs. HISTORY: Pain, wrist 3 days, pulling object COMPARISON: None. FINDINGS: BONES: Bone alignment and mineralization are normal. There is no acute displaced fracture or bone destruction. JOINTS: Normal. No dislocation. SOFT TISSUES: Normal. OTHER FINDINGS: None. IMPRESSION: No acute fracture or dislocation.
== END 2018-07-17 16:03 | disposition home or self-care (01) ==
LOC: C.ER 14:55
DX: M77.8 Other enthesopathies, not elsewhere classified (principal)

== ENCOUNTER 2018-08-12 10:26 | Emergency (ER) | payer MEDICAID ==
[2018-08-12 10:26] VITALS: BMI 20.7
[2018-08-12 10:51] VITALS: BP 133/80; PULSE 62; RESP 18; TEMP 97.6; O2SAT 97
--- NOTE | 2018-08-12 11:34 | C.PDOC ---
History Of Present Illness 43-year-old male, presents to the emergency department complaining of pain to right wrist and forearm for the past several days. Patient denies any trauma/injury. He admits to having this pain before, previously in the right wrist. 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 He denies any nausea/vomiting, fever or chills. No other complaints at this time. Time Seen by Provider: 08/12/18 10:37 Chief Complaint (Nursing): Finger,Hand,&Wrist History Per: Patient History/Exam Limitations: no limitations Past Medical History Reviewed: Historical Data, Nursing Documentation, Vital Signs Vital Signs: Last Vital Signs Temp 97.6 F 08/12/18 10:43 Pulse 62 08/12/18 10:43 Resp 18 08/12/18 10:43 BP 133/80 08/12/18 10:43 Pulse Ox 97 08/12/18 10:43 - Medical History PMH: Denies: Chronic Kidney Disease Family History: States: No Known Family Hx - Social History Hx Tobacco Use: No Hx Alcohol Use: No Hx Substance Use: No - Immunization History Hx Tetanus Toxoid Vaccination: (UNK) Hx Influenza Vaccination: Yes Hx Pneumococcal Vaccination: (UNK) Review Of Systems Musculoskeletal: Positive for: Arm Pain, Hand Pain Neurological: Negative for: Weakness, Numbness Physical Exam - Physical Exam Appears: Non-toxic, No Acute Distress Skin: Warm, Dry, No Rash Head: Atraumatic, Normacephalic Eye(s): bilateral: Normal Inspection Nose: Normal Oral Mucosa: Moist Lips: Normal Appearing Neck: Normal ROM Respiratory: No Accessory Muscle Use Extremity: Tenderness (right lateral wrist and distal forearm. No swelling/erythema/deformity.), No Deformity, No Swelling Pulses: Left Radial: Normal, Right Radial: Normal Neurological/Psych: Oriented x3, Normal Speech ED Course And Treatment O2 Sat by Pulse Oximetry: 97 Pulse Ox Interpretation: Normal (RA) Progress Note: Pts right arm placed in removable splint. Will discharge home on naproxyn Disposition Counseled Patient/Family Regarding: Studies Performed, Diagnosis, Need For Followup, Rx Given - Disposition Referrals: Sarahi Ayala MD [Staff Provider] - Disposition: HOME/ ROUTINE Disposition Time: 11:30 Condition: STABLE Additional Instructions: FOLLOW UP WITH YOUR DOCTOR/CLINIC IN 1-2 DAYS, AND WITH ORTHOPEDICS WITHIN 1 WEEK USE PAIN MEDICATION NEEDED RETURN TO ER IF SYMPTOMS WORSEN Prescriptions: Ibuprofen [Motrin Tab] 600 mg PO Q6 PRN #30 tab PRN Reason: fever/pain Forms: [facility] (Hungarian), Work Excuse Print Language: TURKISH - POA Present On Arrival: None - Clinical Impression Clinical Impression: Right wrist tendonitis - Scribe Statement The provider has reviewed the documentation as recorded by the Scribe (Rebeca Cramer) Provider Attestation: All medical record entries made by the Scribe were at my direction and personally dictated by me. I have reviewed the chart and agree that the record accurately reflects my personal performance of the history, physical exam, medical decision making, and the department course for this patient. I have also personally directed, reviewed, and agree with the discharge instructions and disposition.
--- NOTE | 2018-08-12 11:54 | RAD ---
Date of service: 08/12/2018 PROCEDURE: Right Wrist Radiographs. HISTORY: Pain COMPARISON: 04/05/2018. FINDINGS: BONES: Bone alignment and mineralization are normal. There is no acute displaced fracture or bone destruction. JOINTS: Normal. No dislocation. SOFT TISSUES: Normal. OTHER FINDINGS: None. IMPRESSION: No acute fracture or dislocation.
== END 2018-08-12 11:55 | disposition home or self-care (01) ==
LOC: C.ER 10:26
DX: M77.8 Other enthesopathies, not elsewhere classified (principal)

== ENCOUNTER 2018-10-02 19:47 | Emergency (ER) | payer MEDICAID ==
[2018-10-02 19:47] VITALS: BMI 20.7
--- NOTE | 2018-10-02 21:31 | C.PDOC ---
History Of Present Illness 43 y/o male pt presents to the ER c/o left hip pain. Pt reports onset was when his co-worker bumped into him. Associated sx cough x1 month. Pt denies fever, chills, abdominal pain and vomiting, fall, paresthesia, chest pain, dysuria, focal weakness and sensory deficit. Chief Complaint (Nursing): Chest Pain History Per: Patient History/Exam Limitations: no limitations Onset/Duration Of Symptoms: Days Current Symptoms Are (Timing): Still Present Past Medical History Reviewed: Historical Data, Nursing Documentation, Vital Signs Vital Signs: Last Vital Signs Temp 98 F 10/02/18 20:20 Pulse 77 10/02/18 20:20 Resp 18 10/02/18 20:20 BP 122/85 10/02/18 20:20 Pulse Ox 98 10/02/18 20:20 - Medical History PMH: Family History: States: Unknown Family Hx - Social History Hx Tobacco Use: No Hx Alcohol Use: No Hx Substance Use: No - Immunization History Hx Tetanus Toxoid Vaccination: (UNK) Hx Influenza Vaccination: Yes Hx Pneumococcal Vaccination: (UNK) Review Of Systems Except As Marked, All Systems Reviewed And Found Negative. Constitutional: Negative for: Fever, Chills, Other (fall) Cardiovascular: Negative for: Chest Pain Respiratory: Positive for: Cough Gastrointestinal: Negative for: Vomiting, Abdominal Pain Genitourinary: Negative for: Dysuria Musculoskeletal: Positive for: Other (left hip pain ) Neurological: Negative for: Weakness (focal), Other (paresthesia; sensory deficit) Physical Exam - Physical Exam Appears: Non-toxic, No Acute Distress Skin: Warm, Dry Head: Normacephalic Eye(s): bilateral: Normal Inspection, EOMI Oral Mucosa: Moist Throat: Normal Neck: Normal ROM, Supple Chest: Symmetrical Cardiovascular: Rhythm Regular Respiratory: Normal Breath Sounds Gastrointestinal/Abdominal: Soft, No Tenderness Extremity: Left: [place] Tenderness (left hip ) Neurological/Psych: Oriented x3, Normal Speech ED Course And Treatment ECG Rhythm: Sinus Bradycardia Rate From EC O2 Sat by Pulse Oximetry: 98 (RA) Pulse Ox Interpretation: Normal Medical Decision Making Medical Decision Making: Impression: left hip pain plans: -- CXR -- Ibuprofen -- left hip XR Disposition - Disposition Referrals: [facility] Preston Gallo, [Non-Staff] - Disposition: HOME/ ROUTINE Disposition Time: 21:30 Condition: GOOD Additional Instructions: LISSETTE GARCIA, thank you for letting us take care of you today. The emergency medical care you received today was directed at your acute symptoms. If you were prescribed any medication, please fill it and take as directed. It may take several days for your symptoms to resolve. Return to the Emergency Department if your symptoms worsen, do not improve, or if you have any other problems. Please contact your doctor or call one of the physicians/clinics you have been referred to that are listed on the Patient Visit Information form that is included in your discharge packet. Bring any paperwork you were given at discharge with you along with any medications you are taking to your follow up visit. Our treatment cannot replace ongoing medical care by a primary care provider outside of the emergency department. Thank you for allowing the [facility] team to be part of your care today. Follow up with your primary care doctor next week for re-evaluation and further management. Prescriptions: Ibuprofen [Motrin] 600 mg PO Q6 PRN #20 tab PRN Reason: Pain, Moderate (4-7) Instructions: Muscle and Bone Pain (DC), Cough, Adult (DC) Forms: [employer] (Upper Sorbian) - Clinical Impression Clinical Impression: Hip pain - Scribe Statement The provider has reviewed the documentation as recorded by the Scribkim Dumont Do Provider Attestation: All medical record entries made by the Scribe were at my direction and personally dictated by me. I have reviewed the chart and agree that the record accurately reflects my personal performance of the history, physical exam, medical decision making, and the department course for this patient. I have also personally directed, reviewed, and agree with the discharge instructions and disposition.
[2018-10-02 21:54] VITALS: BP 126/72; PULSE 81; RESP 17; TEMP 97.9
[2018-10-03 02:11] VITALS: O2SAT 98
--- NOTE | 2018-10-03 16:31 | RAD ---
PROCEDURE: Left Hip X-ray Radiographs. HISTORY: r/o fx COMPARISON: None. FINDINGS: BONES: Normal. No fracture. JOINTS: Normal. SOFT TISSUES: Normal. OTHER FINDINGS: None. IMPRESSION: Normal left hip radiographs.
--- NOTE | 2018-10-03 16:33 | RAD ---
Date of service: 10/02/2018 HISTORY: cough r/o infiltrate COMPARISON: 07/30/2017 TECHNIQUE: Chest PA and lateral FINDINGS: LUNGS: No active pulmonary disease. PLEURA: No significant pleural effusion identified. No pneumothorax apparent. CARDIOVASCULAR: No aortic atherosclerotic calcification present. Normal cardiac size. No pulmonary vascular congestion. OSSEOUS STRUCTURES: No significant abnormalities. VISUALIZED UPPER ABDOMEN: Normal. OTHER FINDINGS: None. IMPRESSION: No active disease.
== END 2018-10-02 21:54 | disposition home or self-care (01) ==
LOC: C.ER 19:47
DX: M25.552 Pain in left hip (principal)

== ENCOUNTER 2018-10-09 19:10 | Emergency (ER) | payer MEDICAID ==
[2018-10-09 19:11] VITALS: BMI 20.7
[2018-10-09 20:14] VITALS: BP 126/74; PULSE 69; RESP 20; TEMP 97.6; O2SAT 98
--- NOTE | 2018-10-09 20:18 | C.PDOC ---
History Of Present Illness 43 year old male presents to the ER with a complaint of atraumatic left hip pain for "a long time". Patient was seen on 10/02/18 for the same complaint, he had x-rays done and discharged on motrin but is requesting another pain medication. Denies weakness or numbness. Time Seen by Provider: 10/09/18 19:48 Chief Complaint (Nursing): Medical Clearance History Per: Patient History/Exam Limitations: no limitations Onset/Duration Of Symptoms: Days Current Symptoms Are (Timing): Still Present Recent travel outside of the [place]: No Past Medical History Reviewed: Historical Data, Nursing Documentation, Vital Signs Vital Signs: Last Vital Signs Temp 97.6 F 10/09/18 20:13 Pulse 69 10/09/18 20:13 Resp 20 10/09/18 20:13 BP 126/74 10/09/18 20:13 Pulse Ox 98 10/09/18 20:13 - Medical History PMH: Denies: Chronic Kidney Disease Family History: States: Unknown Family Hx - Social History Hx Tobacco Use: No Hx Alcohol Use: No Hx Substance Use: No - Immunization History Hx Tetanus Toxoid Vaccination: (UNK) Hx Influenza Vaccination: Yes Hx Pneumococcal Vaccination: (UNK) Review Of Systems Musculoskeletal: Positive for: Other (Left hip pain) Neurological: Negative for: Weakness, Numbness Physical Exam - Physical Exam Appears: Non-toxic Skin: Normal Color, Warm, Dry Head: Atraumatic, Normacephalic Eye(s): bilateral: Normal Inspection Back: No Vertebral Tenderness, No Paraspinal Tenderness Extremity: Normal ROM (x4), No Tenderness, No Deformity, No Swelling Pulses: Left Dorsalis Pedis: Normal, Right Dorsalis Pedis: Normal Neurological/Psych: Oriented x3, Normal Speech, Normal Motor, Normal Sensation Gait: Steady ED Course And Treatment O2 Sat by Pulse Oximetry: 98 (Room air) Pulse Ox Interpretation: Normal Medical Decision Making Medical Decision Making: Patient is resting comfortably in the ER in no acute distress, vitals are stable, will discharge home with Rx and instructions to follow up with PMD. 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 - Scribe Statement The provider has reviewed the documentation as recorded by the Scribe Francis Kaur All medical record entries made by the Scribe were at my direction and personally dictated by me. I have reviewed the chart and agree that the record accurately reflects my personal performance of the history, physical exam, medical decision making, and the department course for this patient. I have also personally directed, reviewed, and agree with the discharge instructions and disposition.
== END 2018-10-09 20:26 | disposition home or self-care (01) ==
LOC: C.ER 19:10
DX: M25.552 Pain in left hip (principal)